=== PATIENT | female | born 1950 | race Caucasian/White ===

== ENCOUNTER → 2020-08-04 | Outpatient (CLI) | payer MEDICARE, OTHER ==
--- NOTE | 2020-08-04 18:08 | Diagnostic Imaging Report ---
PROCEDURE: MR imaging of the brain without contrast. TECHNIQUE: Multiplanar, multisequence MR imaging of the brain was performed without contrast. INDICATION: Blurred vision. COMPARISON: No priors. FINDINGS: There are no foci of abnormal diffusion restriction. There were no findings of an acute or subacute ischemic infarct. There are nonspecific white matter lesions, periventricular and pericallosal, without mass effect or diffusion restriction. Cerebral cortical volume normal. There is no hydrocephalus. There is no evidence for an infarct and there are no findings of acute or chronic hemorrhage. There is no abnormal extra-axial fluid collection. There are no findings of focal or generalized cerebral edema. The orbital contents and sinuses normal. IMPRESSION: Nonspecific central white matter disease without edema, hemorrhage, infarct or mass identified. No acute appearing abnormality Dictated by: Dictated on workstation # [id number]
== END ==
LOC: RAD 15:41
PROVIDERS: ATTEND Family Medicine
DX: H53.9 Unspecified visual disturbance (principal); R90.82 White matter disease, unspecified
CPT/HCPCS: 70551